=== PATIENT | female | born 2005 | race Hispanic/Latino ===

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

== ENCOUNTER 2023-08-27 19:24 | Emergency (ER) | payer MEDICAID ==
[~2023-08-27] VITALS: Ht 160 cm; Wt 53.5 kg
[~2023-08-27 19:24] MED LIST: ONDA4TAB10 PO; OSEL75 PO
[2023-08-27 20:06] LABS: APPEARANCE,URINE CLEAR (CLEAR); BILIRUBIN,URINE NEGATIVE (NEGATIVE); COLOR,URINE LIGHT-YELLOW (YELLOW); GLUCOSE, URINE (UA) NEGATIVE (NEGATIVE); KETONES,URINE NEGATIVE (NEGATIVE); LEUKOCYTE ESTERASE ,URINE NEGATIVE Leu/uL (NEGATIVE); NITRATE,URINE NEGATIVE (NEGATIVE); OCCULT BLOOD,URINE NEGATIVE (NEGATIVE); PROTEIN,URINE NEGATIVE (NEGATIVE); UROBILINOGEN,URINE 0.2 mg/dL (0.2-1.0)
[2023-08-27 20:08] LABS: HCG,QUALITATIVE URINE POSITIVE (NEGATIVE)
[2023-08-27 20:09] LABS: ADD UA MICROSCOPIC NO
[2023-08-27 21:36] LABS: BASOPHILS # (AUTO) 0.04 K/uL (0.00-0.20); BASOPHILS % (AUTO) 0.4 % (0.0-5.0); EOSINOPHILS # (AUTO) 0.06 K/uL (0.00-0.70); EOSINOPHILS % (AUTO) 0.6 % (0.0-8.0); HEMATOCRIT 37.3 % (36-48); IMMATURE GRANULOCYTE ABSOLUTE 0.03 K/uL (0-1); LYMPHOCYTES # (AUTO) 2.3 K/uL (1.0-4.8); LYMPHOCYTES % (AUTO) 21.9 % (21.0-51.0); MEAN CORPUSCULAR HEMOGLOBIN 30.3 pg (27.0-33.0); MEAN CORPUSCULAR HGB CONC 35.1 g/dL (32.0-36.0); MEAN CORPUSCULAR VOLUME 86.3 fL (80-100); MONOCYTES # (AUTO) 0.6 K/uL (0.1-1.0); MONOCYTES % (AUTO) 5.7 % (3.0-13.0); NEUTROPHILS # (AUTO) 7.5 K/uL (1.8-7.7); NEUTROPHILS % (AUTO) 71.1 % (40.0-77.0); PLATELET COUNT (AUTO) 241 K/uL (130-400); RED BLOOD CELL COUNT(AUTO) 4.32 MIL/uL (4.00-5.50); RED CELL DISTRIBUTION WIDTH 12.4 % (11.0-15.5); WHITE BLOOD COUNT (AUTO) 10.5 K/uL (4.8-10.8)
[2023-08-27 21:50] LABS: CREATININE 0.6 mg/dL (0.5-1.5); POTASSIUM 3.4 mmol/L (3.5-5.1)
[2023-08-27 22:16] LABS: BILIRUBIN,TOTAL 0.3 mg/dL (0.2-1.0); TOTAL PROTEIN, SERUM 7.7 g/dL (6.0-8.3)
[2023-08-27 22:22] VITALS: BP 131/62; PULSE 88; RESP 18; O2SAT 98
== END 2023-08-27 22:28 | disposition home or self-care (01) ==
LOC: EDH 19:24
DX: O20.0 Threatened abortion (principal); O20.8 Other hemorrhage in early pregnancy; Z3A.09 9 weeks gestation of pregnancy; Z79.899 Other long term (current) drug therapy
CPT/HCPCS: 36415; 76801; 80053; 81003; 81025; 84702; 85025

== ENCOUNTER 2023-09-01 09:11 | Emergency (ER) | payer MEDICAID ==
[~2023-09-01] VITALS: Ht 160 cm; Wt 53.1 kg
[2023-09-01 09:45] LABS: BILIRUBIN,URINE NEGATIVE (NEGATIVE); COLOR,URINE YELLOW (YELLOW); GLUCOSE, URINE (UA) NEGATIVE (NEGATIVE); KETONES,URINE NEGATIVE (NEGATIVE); LEUKOCYTE ESTERASE ,URINE 500 Leu/uL (NEGATIVE); NITRATE,URINE NEGATIVE (NEGATIVE); PROTEIN,URINE 20 mg/dL (NEGATIVE); UROBILINOGEN,URINE 0.2 mg/dL (0.2-1.0)
[2023-09-01 09:47] LABS: HCG,QUALITATIVE URINE POSITIVE (NEGATIVE)
[2023-09-01 09:48] LABS: APPEARANCE,URINE HAZY (CLEAR)
[2023-09-01 09:49] LABS: ADD UA MICROSCOPIC YES
[2023-09-01 09:51] LABS: BACTERIA,URINE FEW /HPF (None Seen); MUCUS,URINE MOD LPF (None Seen); SQUAMOUS EPITHELIAL CELL,UR MOD /HPF (0-2)
[2023-09-01 10:10] LABS: BASOPHILS # (AUTO) 0.02 K/uL (0.00-0.20); BASOPHILS % (AUTO) 0.2 % (0.0-5.0); EOSINOPHILS # (AUTO) 0.04 K/uL (0.00-0.70); EOSINOPHILS % (AUTO) 0.4 % (0.0-8.0); HEMATOCRIT 37.1 % (36-48); IMMATURE GRANULOCYTE ABSOLUTE 0.03 K/uL (0-1); LYMPHOCYTES # (AUTO) 2.3 K/uL (1.0-4.8); MEAN CORPUSCULAR HEMOGLOBIN 30.6 pg (27.0-33.0); MEAN CORPUSCULAR HGB CONC 35.8 g/dL (32.0-36.0); MEAN CORPUSCULAR VOLUME 85.3 fL (80-100); MONOCYTES # (AUTO) 0.5 K/uL (0.1-1.0); MONOCYTES % (AUTO) 5.4 % (3.0-13.0); NEUTROPHILS # (AUTO) 6.5 K/uL (1.8-7.7); NEUTROPHILS % (AUTO) 69.7 % (40.0-77.0); PLATELET COUNT (AUTO) 234 K/uL (130-400); RED BLOOD CELL COUNT(AUTO) 4.35 MIL/uL (4.00-5.50); RED CELL DISTRIBUTION WIDTH 12.5 % (11.0-15.5); WHITE BLOOD COUNT (AUTO) 9.4 K/uL (4.8-10.8)
[2023-09-01 10:20] LABS: CREATININE 0.6 mg/dL (0.5-1.5); POTASSIUM 3.8 mmol/L (3.5-5.1)
[2023-09-01 10:46] LABS: ALBUMIN 4.2 g/dL (3.5-5.0); BILIRUBIN,TOTAL 0.4 mg/dL (0.2-1.0); TOTAL PROTEIN, SERUM 8.1 g/dL (6.0-8.3)
[2023-09-01] MEDS ORDERED: MACR100 PO (12:59)
[2023-09-01 13:30] VITALS: BP 118/72; PULSE 88; RESP 18; O2SAT 98
[2023-09-01] MEDS ORDERED: ACETAMINOPHEN 500 MG TABLET PO ONE (14:00)
== END 2023-09-01 14:38 | disposition home or self-care (01) ==
LOC: EDH 09:11
DX: O20.0 Threatened abortion (principal); O23.10 Infections of bladder in pregnancy, unspecified trimester; N30.01 Acute cystitis with hematuria; R10.2 Pelvic and perineal pain; Z3A.00 Weeks of gestation of pregnancy not specified
CPT/HCPCS: 36415; 80053; 81001; 81025; 84702; 85025; 87088

== ENCOUNTER 2024-08-14 11:53 | Emergency (ER) | payer MEDICAID ==
[~2024-08-14 11:53] MED LIST changes: +MACR100 PO; +ONDA-243 PO; -ONDA4TAB10 PO
--- NOTE | 2024-08-14 12:04 | ERN ---
ED Note History of Present Illness Stated Complaint: RIB PAIN, NECK AND SHOULDER PAIN Chief Complaint: Rib Pain Time Seen by MD: 11:54 Dictation: PATIENT IS A 19-YEAR-OLD FEMALE WHO COMPLAINTS OF RIGHT LATERAL CHEST WALL PAIN WORSE WHEN SHE COUGHS OR TAKE A DEEP BREATH ONSET LAST SUNDAY. SHE STATES IT HAPPENED AFTER SHE GOT BACK FROM HER UNCLE'S . SHE DENIES ANY TRAUMA, SKIN IS INTACT NO FEVER NO CHILLS NO RUNNY NOSE. SHE HAS NOT BEEN TO SEE YOUR PRIMARY CARE DOCTOR HAS TAKEN IBUPROFEN ONCE FOR PAIN. DYLON RN IN ROOM IN TRIAGE WITH THE EXAM, PATIENT HAS TENDERNESS WITH PALPATION AND PAIN IS REPRODUCIBLE TO RIGHT LATERAL INFERIOR CHEST WALL Allergies: Coded Allergies: No Known Allergies (Unverified Allergy, Unknown, 08/07/20) Home Meds Active Scripts Nitrofurantoin/Nitrofuran Mac (Macrobid) 100 Mg Cap, 1 CAP PO BID for 7 Days, #14 CAP 0 Refills Prov:YASMIN MCDONALD [employer]LEMARKETING SALES REPRESENTATIVE 09/01/23 Ondansetron (Ondansetron Odt) 4 Mg Tab.rapdis, 4 MG PO every 6 hours for nausea/vomiting for 4 Days, #16 TAB Prov:MARC HAGAN NP 08/11/22 Oseltamivir Phosphate (Tamiflu) 75 Mg Cap, 75 MG PO BID for 5 Days, #10 CAP Prov:MARC HAGAN TELEMARKETING SALES REPRESENTATIVE 08/11/22 Past Medical History Past Medical History: No Pertinent History Surgical History: None Social History: Other History: Not Applicable : 1 Para: 0 Aborts: 0 RN Note Reviewed/Agreed w/PFSH: Yes Review of System Dictation CONSTITUTIONAL: NEGATIVE EXCEPT FOR HPI HEAD/FACE: NEGATIVE EXCEPT FOR HPI EENT: NEGATIVE EXCEPT FOR HPI RESPIRATORY: NEGATIVE EXCEPT FOR HPI RIGHT LATERAL INFERIOR CHEST WALL PAIN FIVE DAYS GASTROINTESTINAL/ABDOMINAL: NEGATIVE EXCEPT FOR HPI GENITOURINARY: NEGATIVE EXCEPT FOR HPI MUSCULOSKELETAL: NEGATIVE EXCEPT FOR HPI INTEGUMENTARY: NEGATIVE EXCEPT FOR HPI NEUROLOGICAL/PSYCH: NEGATIVE EXCEPT FOR HPI HEMATOLOGIC/LYMPHATIC: NEGATIVE EXCEPT FOR HPI ALL SYSTEMS NEGATIVE, EXCEPT NOTED ABOVE. 13 POINT REVIEW OF SYSTEMS ASSESSED AND ALL NEGATIVE EXCEPT FOR ABOVE. Initial Vital Sign VS Vital Signs Date Time Temp Pulse Resp B/P (MAP) Pulse Ox O2 Delivery O2 Flow Rate FiO2 08/14/24 12:02 98.2 68 16 109/71 98 08/14/24 12:02 Room Air* 0 21 Physical Exam Dictation VITAL SIGNS REVIEWED DYLON RN IN ROOM WITH THE EXAM GENERAL APPEARANCE: ALERT, ORIENTED X 3, MODERATE ACUTE DISTRESS, WELL DEVELOPED, NOURISHED. HEAD AND FACE: NON-TRAUMATIC. EYES: PERRL, PINK CONJUNCTIVAS, EYELID NO TRAUMA, ANTERIOR CHAMBER WITH ARCUS SENILIS. EARS: PINNAS INTACT AND NO SIGNS OF TRAUMA OR ERYTHEMA EAR CANALS CLEAR AND NO DISCHARGE TM NO ERYTHEMA NOSE: NO DISCHARGE, NO BLEEDING. OROPHARYNX: MOUTH NORMAL, TONGUE PINK, PHARYNX CLEAR,NO ERYTHEMA, TONSILS NO EXUDATES, NO ABSCESSES NOTED, MUCOUS MEMBRANE MOIST NECK: SUPPLE, NON-TENDER, NO THYROMEGALY, NO MASSES, NO JVD, NO BRUITS BREAST:DEFERRED CHEST: MODERATE RIGHT LATERAL INFERIOR CHEST WALL TENDERNESS WITH PALPATION TENDERNESS, NO CREPITUS, NO PARADOXICAL MOVEMENT, NO RETRACTIONS BILATERAL BREATH SOUNDS CLEAR TO AUSCULTATION LUNGS:CLEAR, WELL-VENTILATED, SYMMETRIC, NO RALES, NO WHEEZING, NO RHONCHI, NO STRIDOR, GOOD BREATH SOUNDS BILATERALLY HEART: REGULAR RATE, REGULAR RHYTHM, NO MURMUR, NO GALLOPS VASCULAR: NO PERIPHERAL EDEMA, ABDOMEN: SOFT, POSITIVE BOWEL SOUNDS, NONDISTENDED, NO GUARDING, NONTENDER, NO REBOUND, NO MASSES NO HEPATOMEGALY, NO SPLENOMEGALY, NO ROTHMAN'S SIGN, NO HERNIAS. RECTAL: DEFERRED GENITAL: DEFERRED NEUROLOGICAL: NORMAL SPEECH, MOTOR FUNCTION INTACT, SENSORY FUNCTION INTACT MUSCULOSKELETAL: NECK NONTENDER, FULL RANGE OF MOTION, BACK NONTENDER, FULL RANGE OF MOTION, EXTREMITIES: NONTENDER, FULL RANGE OF MOTION SKIN: COLOR PINK, DRY, NO TURGOR, NO RASH, NO LACERATIONS, NO ABRASIONS, NO CONTUSIONS. LYMPHATIC: DEFERRED Results (Laboratory/Radiology) Laboratory/Radiology CHEST X-RAY NEGATIVE Labs Reviewed?: Yes ED Course ED Course Orders Procedure Category Date Status Time Dexamethasone 4mg/Ml PHA 08/14/24 Complete 1ml Vial (Dexametha 12:30 Ketorolac 60mg/2ml PHA 08/14/24 Complete (Toradol 60mg/2ml) 12:30 Chest 1vw RAD 08/14/24 Taken 12:01 Current Medications Medications (Trade) Dose Ordered Sig/Odell Route PRN Reason Start Time Stop Time Status Last Admin Dose Admin Dexamethasone Sodium Phosphate (dexaMETHasone 4MG/ML 1ML VIAL) 8 mg ONCE ONCE IM 08/14/24 12:30 08/14/24 12:31 DC 08/14/24 12:42 Ketorolac Tromethamine (toRADol 60MG/ 2ML) 60 mg ONCE ONCE IM 08/14/24 12:30 08/14/24 12:31 DC 08/14/24 12:42 Vital Signs Date Time Temp Pulse Resp B/P (MAP) Pulse Ox O2 Delivery O2 Flow Rate FiO2 08/14/24 12:02 98.2 68 16 109/71 98 Room Air* 0 21 08/14/24 12:02 98.2 68 16 109/71 98 1340, PATIENT STATES PAIN IS BEING REDUCED AFTER TREATMENT WITH DECADRON AND KETOROLAC. DISCHARGED HOME WITH DIAGNOSIS OF COSTOCHONDRITIS, PRESCRIBED IBUPROFEN AND TOLD TO SEE HER DOCTOR IN 1-2 DAYS Medical Decision Making MDM MEDICAL DISCHARGE MAKING BASED ON CHEST X-RAY AND TREATMENT FOR ACUTE COSTOCHONDRITIS. CHEST X-RAY NEGATIVE PAIN BEING REDUCED WITH KETOROLAC AND DECADRON. DISCHARGED HOME ON IBUPROFEN AND TOLD TO SEE HER PRIMARY CARE DOCTOR DX & DISP Disposition: Discharge Departure Impression: Primary Impression: Acute costochondritis Condition: Stable Scripts Ibuprofen (Ibuprofen) 600 Mg Tablet 600 MG PO Q6H PRN for PAIN, #30 TAB Prov: YASMIN MCDONALD TELEMARKETING SALES REPRESENTATIVE 08/14/24 Additional Instructions: FOLLOW-UP WITH PRIMARY CARE PROVIDER IN 1 TO 2 DAYS. TAKE MEDICATIONS DIRECTED HERE IN THE EMERGENCY ROOM. OKAY TO CONTINUE HOME MEDICATIONS UNLESS OTHERWISE DISCUSSED DURING YOUR VISIT IN THE EMERGENCY ROOM TODAY. RETURN TO YOUR NEAREST EMERGENCY ROOM IF SYMPTOMS WORSEN OR IF THERE IS NO IMPROVEMENT. CALL 911 IF YOU NEED IMMEDIATE ASSISTANCE. TAKE TYLENOL OR MOTRIN [id number] NEEDED AND IF NO CONTRAINDICATIONS ARE PRESENT. INCREASE ORAL HYDRATION. A WOUND CULTURE OR URINE CULTURE WAS ORDERED HERE IN THE EMERGENCY ROOM DEPARTMENT PLEASE FOLLOW-UP WITH PRIMARY CARE PROVIDER AND ADVISE THEM TO GET REPEAT PORTS FROM OUR FACILITY. IF YOU HAD ANY BRISEYDA WRAP/SPLINTS THAT WERE APPLIED HERE, PLEASE DO NOT REMOVE THEM UNTIL YOU SEE YOUR PRIMARY CARE OR SPECIALTY. TAKE IBUPROFEN EVERY8 HOURS WITH FOOD FOR THE NEXT THREE DAYS. SEE YOUR PRIMARY CARE DOCTOR FOR FOLLOW UP IN 1-2 DAYS Referrals: ESTIVEN TAFOYA MD (PCP) Time of Disposition: 13:43 I have reviewed the case, and I agree with, Diagnosis and Plan YASMIN MCDONALD NP Aug 14, 2024 12:04
[2024-08-14] MEDS: ketOROlac 60 MG VIAL (30MG/ML) IM ONE (12:42)
[2024-08-14] MEDS: dexaMETHasone SOD PHOSPHATE 4 MG/ML 1ML VIAL IM ONE (12:42)
--- NOTE | 2024-08-14 13:00 | NUR ---
PT REUTRNED FROM RADIOLOGY AND NOW PENDING RESULTS.
[2024-08-14] MEDS ORDERED: IBUP-2070 PO (13:43)
[2024-08-14 13:52] VITALS: BP 114/73; PULSE 70; RESP 16; TEMP 98.2; O2SAT 100
--- NOTE | 2024-08-14 13:56 | HMCIMG ---
CHEST 1VW HISTORY: Chest wall tenderness COMPARISON: 08/11/2022 FINDINGS: A frontal projection of the chest was obtained. No acute pulmonary infiltrates is seen. The heart is borderline enlarged. Prominent interstitial markings are seen. Degenerative changes are seen. No evidence of aortic calcification is seen. IMPRESSION: 1. No acute pulmonary infiltrate is seen.
== END 2024-08-14 13:51 | disposition home or self-care (01) ==
LOC: EDH 11:53
DX: M94.0 Chondrocostal junction syndrome [Tietze] (principal); Z79.899 Other long term (current) drug therapy
CPT/HCPCS: 99284; 71045; 96372 ×2; J1100; J1885